=== PATIENT | female | born 2000 | race Caucasian/White ===

== ENCOUNTER 2019-01-14 17:14 | Emergency (ER) | payer BC, OTHER ==
[~2019-01-14] VITALS: Ht 157.5 cm; Wt 54.4 kg
[2019-01-14 17:45] LABS: HEMATOCRIT 37.2 % (37.0-47.0); HEMOGLOBIN 12.7 gm/dL (12.0-15.0); MCH 29.3 pg (26.0-34.0); MCHC 34.2 g/dL (28.0-37.0); MCV 85.8 fL (80.0-100.0); PLATELET COUNT 309 thou/uL (150-400); RBC 4.33 mil/uL (4.20-5.00); RDW 13.4 % (10.5-14.5); WBC 21.5 thou/uL (4.0-11.0)
[2019-01-14 18:10] LABS: CALCIUM 9.1 mg/dL (8.5-10.1); CREATININE 0.8 mg/dL (0.6-1.0); POTASSIUM 3.2 mmol/L (3.5-5.1)
[2019-01-14 18:20] LABS: ABSOLUTE NEUTROPHILS 18.3 thou/uL (1.4-8.2); ATYPICAL LYMPHS 1 %
[2019-01-14 18:47] LABS: URINE BLOOD 3+ (Negative); URINE CLARITY CLOUDY; URINE COLOR R; URINE SPECIFIC GRAVITY 1.015 (1.005-1.035)
[2019-01-14 18:48] LABS: URINE PROTEIN (DIPSTICK) 1+ (Negative)
[2019-01-14 18:51] LABS: URINE REDUCING SUBSTANCE NEGATIVE
[2019-01-14 18:53] LABS: CASTS None Seen /LPF (None Seen); SQUAMOUS 0-3 Few /LPF (0-3); URINE WBC-REFLEX 0-5 Rare /HPF (0-5)
[2019-01-14 18:54] LABS: BACTERIA-REFLEX None Seen /HPF (None Seen); CRYSTALS None Seen /LPF (None Seen); URINE RBC >20 Many /HPF (0-2)
[2019-01-14] MEDS ORDERED: NORCO 5-325 TA1 EAC1 PO (20:52)
[2019-01-14] MEDS ORDERED: DOXYCYCLINE 10100 MG PO (20:52)
[2019-01-14 20:55] VITALS: BP 110/74
== END 2019-01-14 21:12 | disposition home or self-care (01) ==
LOC: ER 17:14
PROVIDERS: Emergency Medicine; Physician Assistant
DX: O03.9 Complete or unspecified spontaneous abortion without complication (principal); R10.30 Lower abdominal pain, unspecified; Z88.0 Allergy status to penicillin; Z3A.01 Less than 8 weeks gestation of pregnancy